=== PATIENT | female | born 2000 | race Caucasian/White ===

== ENCOUNTER 2022-09-12 06:07 | Inpatient (IN) ==
[2022-09-12 06:36] LABS: Amorphous Crystals,Urine Occasional /HPF (Few); RBC,Urine 57 /HPF (0-4); Squamous Epithelial Cell,Urine Many /HPF (0-10)
[2022-09-12 06:37] LABS: Bilirubin,Urine Negative (Negative); Blood, Urine Trace mg/dL (Negative); Glucose,Urine (UA) Negative (Negative); Ketones,Urine Negative (Negative); Nitrite,Urine Negative (Negative); Protein,Urine >=300 mg/dL (Negative); Urine Appearance Clear (Clear); Urine Color Yellow (Yellow); Urine Specific Gravity 1.025 (1.001-1.035); Urine Urobilinogen 0.2 eU/dL (<2.0)
[2022-09-12] MEDS ORDERED: LACTATED RINGERS 500 ML IV PRN (07:39)
[2022-09-12] MEDS ORDERED: OXYTOCIN/LR 20 UNIT/1,000 ML BAG IV ONE ×4 (07:39→21:39)
[2022-09-12] MEDS ORDERED: LACTATED RINGERS 250 ML IV ONE (07:39)
[2022-09-12] MEDS ORDERED: ONDANSETRON 4 MG/2 ML VIAL IV PRN (07:39)
[2022-09-12] MEDS ORDERED: TRANEXAMIC ACID 1,000 MG in SODIUM CHLORIDE 0.9% 100 ML IV PRN (07:39)
[2022-09-12] MEDS ORDERED: miSOPROStoL 200 MCG TABLET RECTAL PRN (07:39)
[2022-09-12] MEDS ORDERED: CARBOPROST TROMETHAMINE 250 MCG/ML AMP IM PRN (07:39)
[2022-09-12] MEDS ORDERED: ACETAMINOPHEN 325 MG TABLET PO PRN (07:43)
[2022-09-12] MEDS ORDERED: miSOPROStoL 200 MCG TABLET VAG PRN (07:43)
[2022-09-12] MEDS ORDERED: oxyCODONE/ACETAMINOPHEN 5-325 MG TABLET PO PRN (07:43)
[2022-09-12] MEDS ORDERED: NALBUPHINE 10 MG/ML AMP IV PRN (07:49)
[2022-09-12] MEDS ORDERED: NALOXONE 0.4 MG/ML VIAL IV PRN (07:55)
[2022-09-12] MEDS ORDERED: LACTATED RINGERS 1,000 ML IV ONE (07:55)
[2022-09-12] MEDS ORDERED: CITRIC ACID/SODIUM CITRATE 30 ML UDCUP PO ONE (07:55)
[2022-09-12] MEDS ORDERED: ePHEDrine 50 MG/ML VIAL IV PRN (07:55)
[2022-09-12] MEDS ORDERED: FAMOTIDINE 20 MG/2 ML VIAL IV ONE (07:55)
[2022-09-12] MEDS: LACTATED RINGERS 1,000 ML IV SCH ×2 (07:59→09:25)
[2022-09-12] MEDS ORDERED: fentaNYL 2 MCG/ROPIV 0.2% EPID 100 ML EPIDURAL SCH (08:00)
[2022-09-12 08:35] LABS: Basophils % 0.3 % (0.0-0.8); Eosinophils # 0.1 10*3/uL (0.0-0.87); Eosinophils % 0.9 % (0.00-10.9); Hematocrit 30.5 VOL% (35.7-47.0); Hemoglobin 9.5 GM/DL (12.0-16.0); Immature Granulocytes % 1.9 %; Immature Granulocytes Absolute 0.15 #; Lymphocytes # 1.7 10*3/uL (1.4-4.0); Lymphocytes % 21.8 % (21.3-54.2); Mean Corpuscular HGB Conc 31.1 GM/DL (32-36); Mean Corpuscular Volume 80.1 FL (87-102); Mean Platelet Volume 13.3 FL (9.6-12.0); Monocytes # 0.6 10*3/uL (0.11-0.8); NRBC # 0.08 10*3/uL; Neutrophils % 68.1 % (38.7-73.9); Platelet Count 158 T/CUMM (130-400); Red Blood Count 3.81 MC/CUMM (3.8-5.5); Red Cell Distribution Width 14.3 % (9.3-17.3); White Blood Count 7.8 T/CUMM (4-12)
[2022-09-12 09:01] LABS: Alanine Aminotransferase 13 U/L (13-56); Albumin 2.3 G/DL (3.4-5.0); Alkaline Phosphatase 238 U/L (45-117); Aspartate Amino Transferase 18 U/L (0-37); Bilirubin,Total < 0.39 MG/DL (0.20-1.00); Blood Urea Nitrogen 11 MG/DL (7-18); Calcium 9.1 MG/DL (8.5-10.1); Carbon Dioxide 24 MMOL/L (21-32); Chloride 109 MMOL/L (98-107); Glucose 83 MG/DL (74-106); Osmolality,Calculated 278.3 MOS/KG (273-304); Potassium 3.8 MMOL/L (3.5-5.1); Sodium 141 MMOL/L (136-145); Total Protein 6.1 G/DL (6.4-8.2)
[2022-09-12 09:17] LABS: INR 0.8; PT Patient Result 9.4 SECS (10.1-12.1); Partial Thromboplastin Time 26.8 SECS (23.7-32.9)
[2022-09-12 09:56] LABS: Hepatitis B Surface Ag Quant 0.41 Index; Hepatitis B Surface Ag Result Non-Reactive (NonReactive)
[2022-09-12 10:19] LABS: Bacteria,Urine Occasional /HPF (Few); Mucus,Urine Occasional /LPF (Occasional); RBC,Urine <1 /HPF (0-4); Squamous Epithelial Cell,Urine Occasional /HPF (0-10)
[2022-09-12 10:20] LABS: Glucose,Urine (UA) Negative (Negative); Ketones,Urine Negative (Negative); Protein,Urine >=300 mg/dL (Negative); Urine Appearance Clear (Clear); Urine Color Yellow (Yellow); Urine Specific Gravity 1.025 (1.001-1.035)
[2022-09-12 10:21] LABS: Bilirubin,Urine Negative (Negative); Blood, Urine Negative (Negative); Nitrite,Urine Negative (Negative); Urine Urobilinogen 0.2 eU/dL (<2.0)
[2022-09-12 10:22] LABS: HIV Antigen/Antibody Result Nonreactive (Nonreactive)
[2022-09-12] MEDS ORDERED: METHYLERGONOVINE 0.2 MG/1 ML AMP ONE (12:21)
[2022-09-12 15:28] LABS: Cord Venous Blood HCO3 21.6 MMOL/L; Cord Venous Blood PCO2 39.1 MMHG; Cord Venous Blood PO2 29.2
[2022-09-12] MEDS ORDERED: fentaNYL 100 MCG/2 ML VIAL ONE (16:06)
[2022-09-12] MEDS ORDERED: LIDOCAINE 2% 5 ML VIAL ONE (16:07)
[2022-09-12] MEDS ORDERED: ceFAZolin 2,000 MG/50 ML DUPLEX IV ONE (16:10)
[2022-09-12 16:51] LABS: Basophils % 0.1 % (0.0-0.8); Hematocrit 26.7 VOL% (35.7-47.0); Hemoglobin 8.2 GM/DL (12.0-16.0); Immature Granulocytes % 0.9 %; Immature Granulocytes Absolute 0.13 #; Lymphocytes # 1.2 10*3/uL (1.4-4.0); Lymphocytes % 7.6 % (21.3-54.2); Mean Corpuscular HGB Conc 30.7 GM/DL (32-36); Mean Corpuscular Volume 80.2 FL (87-102); Mean Platelet Volume 13.6 FL (9.6-12.0); Monocytes # 0.7 10*3/uL (0.11-0.8); Monocytes % 4.6 % (1.7-12.7); NRBC # 0.04 10*3/uL; Neutrophils % 86.8 % (38.7-73.9); Platelet Count 156 T/CUMM (130-400); Red Blood Count 3.33 MC/CUMM (3.8-5.5); Red Cell Distribution Width 14.3 % (9.3-17.3); White Blood Count 15.3 T/CUMM (4-12)
[2022-09-12 21:28] LABS: Basophils % 0.2 % (0.0-0.8); Hematocrit 23.4 VOL% (35.7-47.0); Hemoglobin 7.3 GM/DL (12.0-16.0); Immature Granulocytes % 1.1 %; Immature Granulocytes Absolute 0.14 #; Lymphocytes % 7.2 % (21.3-54.2); Mean Corpuscular HGB Conc 31.2 GM/DL (32-36); Mean Corpuscular Volume 79.3 FL (87-102); Monocytes # 0.7 10*3/uL (0.11-0.8); Monocytes % 5.3 % (1.7-12.7); NRBC # 0.04 10*3/uL; Neutrophils % 86.2 % (38.7-73.9); Platelet Count 129 T/CUMM (130-400); Red Blood Count 2.95 MC/CUMM (3.8-5.5); Red Cell Distribution Width 14.4 % (9.3-17.3); White Blood Count 13.3 T/CUMM (4-12)
[2022-09-12] MEDS ORDERED: MAGNESIUM HYDROXIDE SUSP 30 ML UDCUP PO ONE (22:15)
[2022-09-12] MEDS ORDERED: ACETAMINOPHEN 325 MG TABLET PO ONE (22:29)
[2022-09-12] MEDS ORDERED: AMPICILLIN 2,000 MG VIAL IM SCH (22:30)
[2022-09-12] MEDS ORDERED: PANTOPRAZOLE 40 MG VIAL IV ONE (22:41)
[2022-09-12] MEDS ORDERED: AMPICILLIN INJ 2,000 MG in SODIUM CHLORIDE 0.9% 100 ML IV SCH (22:45)
[2022-09-12] MEDS ORDERED: SODIUM CHLORIDE 0.9% 100 ML IV ONE (22:56)
[2022-09-12] MEDS ORDERED: ceFAZolin 2,000 MG/50 ML DUPLEX IV SCH (23:00)
[2022-09-12] MEDS: GENTAMICIN INJ 310 MG in SODIUM CHLORIDE 0.9% 100 ML IV SCH (23:23)
[2022-09-12] MEDS ORDERED: diphenhydrAMINE CAP 25 MG CAPSULE PO ONE (23:38)
[2022-09-13] MEDS ORDERED: DIPH/TET/ACEL PERT BOOSTER VACCINE 0.5 ML VIAL IM ONE (01:14)
[2022-09-13] MEDS ORDERED: RHO(D) IMMUNE GLOBULIN 300 MCG SYRINGE IM ONE (01:14)
[2022-09-13] MEDS ORDERED: BISACODYL 10 MG SUPP RECTAL PRN (01:14)
[2022-09-13] MEDS ORDERED: MEASLES/MUMPS/RUBELLA VACCINE 0.5 ML VIAL SUBCUT ONE (01:14)
[2022-09-13] MEDS ORDERED: HYDROCORTISONE 2.5% RECTAL CREAM 30 GM TUBE TOP PRN (01:14)
[2022-09-13] MEDS ORDERED: DOCUSATE/SENNA 50-8.6 MG TABLET PO PRN (01:14)
[2022-09-13] MEDS ORDERED: AMPICILLIN INJ 2,000 MG in SODIUM CHLORIDE 0.9% 100 ML IV SCH ×2 (01:14→05:30)
[2022-09-13] MEDS ORDERED: OXYTOCIN/LR 20 UNIT/1,000 ML BAG IV ONE (01:14)
[2022-09-13] MEDS ORDERED: IBUPROFEN 800 MG TABLET PO PRN (01:14)
[2022-09-13] MEDS ORDERED: BENZOCAINE 20%/MENTHOL 0.5% SPRAY 56 GM CAN TOP PRN (01:14)
[2022-09-13] MEDS ORDERED: WITCH HAZEL PADS 100/JAR TOP PRN (01:14)
[2022-09-13] MEDS ORDERED: ONDANSETRON 4 MG/2 ML VIAL IV PRN (01:14)
[2022-09-13] MEDS ORDERED: LANOLIN 50% CREAM 0.3 OZ TUBE TOP PRN (01:14)
[2022-09-13] MEDS ORDERED: ACETAMINOPHEN 325 MG TABLET PO ONE (01:14)
[2022-09-13] MEDS: DOCUSATE SODIUM 100 MG CAPSULE PO SCH ×3 (01:37→21:00)
[2022-09-13] MEDS: CLINDAMYCIN INJ 900 MG/50 ML PREMIX IV SCH ×3 (01:52→17:11)
[2022-09-13] MEDS: LACTATED RINGERS 1,000 ML IV SCH (04:56)
[2022-09-13 06:28] LABS: Basophils % 0.3 % (0.0-0.8); Eosinophils % 0.1 % (0.00-10.9); Hematocrit 25.2 VOL% (35.7-47.0); Immature Granulocytes % 0.9 %; Lymphocytes # 1.6 10*3/uL (1.4-4.0); Lymphocytes % 13.8 % (21.3-54.2); Mean Corpuscular HGB Conc 31.7 GM/DL (32-36); Mean Corpuscular Volume 80.5 FL (87-102); Mean Platelet Volume 13.6 FL (9.6-12.0); Monocytes # 0.9 10*3/uL (0.11-0.8); Monocytes % 7.9 % (1.7-12.7); NRBC # 0.03 10*3/uL; Platelet Count 114 T/CUMM (130-400); Red Blood Count 3.13 MC/CUMM (3.8-5.5); Red Cell Distribution Width 14.3 % (9.3-17.3); White Blood Count 11.5 T/CUMM (4-12)
[2022-09-13 06:48] LABS: Anisocytosis 1+; Platelet Estimate Adequate
[2022-09-13] MEDS ORDERED: [UNRECOGNIZED DRUG - OTHER] PO SCH (09:00)
[2022-09-13] MEDS ORDERED: IRON PO SCH (09:00)
[2022-09-13] MEDS ORDERED: FERROUS SULFATE 325 MG TABLET PO SCH (09:00)
[2022-09-13] MEDS: ASCORBIC ACID 500 MG TABLET PO SCH ×3 (09:07→21:00)
[2022-09-13] MEDS: MULTIVITAMIN (PRENATAL) TABLET PO SCH (09:07)
[2022-09-13] MEDS: FERROUS SULFATE 325 MG TABLET PO SCH ×3 (09:07→21:00)
[2022-09-13] MEDS: AMPICILLIN INJ 2,000 MG in SODIUM CHLORIDE 0.9% 100 ML IV SCH ×2 (12:26→17:57)
[2022-09-13 16:06] LABS: Basophils % 0.2 % (0.0-0.8); Eosinophils % 0.2 % (0.00-10.9); Hematocrit 25.7 VOL% (35.7-47.0); Hemoglobin 8.1 GM/DL (12.0-16.0); Immature Granulocytes % 1.4 %; Immature Granulocytes Absolute 0.15 #; Lymphocytes # 1.3 10*3/uL (1.4-4.0); Lymphocytes % 12.1 % (21.3-54.2); Mean Corpuscular HGB Conc 31.5 GM/DL (32-36); Mean Corpuscular Volume 81.1 FL (87-102); Monocytes # 0.7 10*3/uL (0.11-0.8); Monocytes % 6.6 % (1.7-12.7); NRBC # 0.04 10*3/uL; Neutrophils % 79.5 % (38.7-73.9); Platelet Count 126 T/CUMM (130-400); Red Blood Count 3.17 MC/CUMM (3.8-5.5); Red Cell Distribution Width 14.4 % (9.3-17.3); White Blood Count 10.6 T/CUMM (4-12)
[2022-09-13 16:20] LABS: INR 0.9; PT Patient Result 9.9 SECS (10.1-12.1)
[2022-09-13 19:44] LABS: Rubella Antibody IgG Result Reactive (NonReactive)
[2022-09-13] MEDS: GENTAMICIN INJ 310 MG in SODIUM CHLORIDE 0.9% 100 ML IV SCH (22:30)
[2022-09-14] MEDS: AMPICILLIN INJ 2,000 MG in SODIUM CHLORIDE 0.9% 100 ML IV SCH ×3 (01:00→12:26)
[2022-09-14] MEDS: LACTATED RINGERS 1,000 ML IV SCH (01:13)
[2022-09-14] MEDS: CLINDAMYCIN INJ 900 MG/50 ML PREMIX IV SCH (02:09)
[2022-09-14] MEDS: MULTIVITAMIN (PRENATAL) TABLET PO SCH (08:46)
[2022-09-14] MEDS: DOCUSATE SODIUM 100 MG CAPSULE PO SCH (08:47)
[2022-09-14] MEDS: FERROUS SULFATE 325 MG TABLET PO SCH (08:47)
[2022-09-14] MEDS: ASCORBIC ACID 500 MG TABLET PO SCH ×2 (08:47→12:26)
[2022-09-14 12:37] VITALS: BP 132/79
[2022-09-14] MEDS ORDERED: FLUCONAZOLE 100 MG TABLET PO SCH (13:00)
[2022-09-14] MEDS ORDERED: FLUCONAZOLE 200 MG TABLET PO SCH (13:00)
== END 2022-09-14 13:50 | disposition home or self-care (01) | DRG 560 ==
LOC: N.LDOUT 06:07 → N.LD 06:07 → N.OB 09-13 09:25
PROVIDERS: ADMIT Obstetrics & Gynecology; ATTEND Obstetrics & Gynecology